=== PATIENT | male | born 1980 | race Caucasian/White ===

== ENCOUNTER 2016-06-08 12:30 | Emergency (ER) | payer OTHER ==
--- NOTE | 2016-06-08 12:42 | EDPHY ---
H & P Stated Complaint: "Pressure in esophagus" x 16 hrs;thinks he has something stuck in throat Time Seen by Provider: 06/08/16 12:42 - Personal History Current Tetanus Diphtheria and Acellular Pertussis (TDAP): Yes Tetanus Vaccine Date: 2015 - Medical/Surgical History Other PMH: family hx achalsia - Social History Smoking Status: Never smoked Constitutional: Initial Vital Signs Temperature (C) 36.8 C 06/08/16 12:35 Heart Rate 78 06/08/16 12:35 Respiratory Rate 18 06/08/16 12:35 Blood Pressure 147/102 H 06/08/16 12:35 O2 Sat (%) 96 06/08/16 12:35 O2 Delivery Mode Room Air Allergies/Adverse Reactions: No Known Allergies Allergy (Unverified 06/08/16 12:41) Home Medications: Medication Instructions Recorded NK [No Known Home Meds] 06/08/16 Medical Decision Making ED Course/Re-evaluation: CHIEF COMPLAINT: "food is getting stuck in my chest" HISTORY OF PRESENT ILLNESS: The patient is a 35 y/o male arriving with his complaining of the sensation of food stuck in his chest for the last 16 hours since eating dinner last night. He continues to have the sensation of food stuck low in his esophagus. He has been vomiting since symptom onset and has difficulty keeping saliva down. He has not been able to eat or drink today. He has had these symptoms previously, but it normally resolves after an hour. He 's experienced symptoms after consuming liquids and solids and sometimes after eating spicy foods. His mother has a history of achalasia. He is otherwise healthy. REVIEW OF SYSTEMS: A 10 point review of systems was performed and is negative with the exception of the elements mentioned in the history of present illness. PHYSICAL EXAM: HR, BP, O2 Sat, RR. Temp noted General Appearance: Alert, well hydrated, appropriate, and non-toxic appearing. Head: Atraumatic without scalp tenderness or obvious injury Eyes: Pupils equal, round, reactive to light and accommodation, EOMI, no trauma , no injection. Ears: Clear bilaterally, no perforation, normal landmarks Nose: Atraumatic, no rhinorrhea, clear. Throat: There is no erythema or exudates, no lesions, normal tonsils, mucus membranes moist. Neck: Supple, nontender, no lymphadenopathy. Respiratory: No retractions, no distress, no wheezes, and no accessory muscle use. Lungs are clear to auscultation bilaterally. Cardiovascular: Regular rate and rhythm, no murmurs, rubs, or gallops. Good capillary refill all extremities. Gastrointestinal: Abdomen is soft, nontender, non-distended, no masses, no rebound, no guarding, no peritoneal signs. Musculoskeletal: Normal active ROM of all extremities, atraumatic. Neurological: Alert, appropriate, and interactive. The patient has normal DTRs and non-focal cranial nerves, motor, sensory, and cerebellar exam. Skin: No rashes, good turgor, no nodules on palpation. Past medical history: previous difficulty getting food stuck in esophagus Past surgical history: denies Family history: Mother has achalasia. Social history: at bedside. PCP: Dr. Marx. DIFFERENTIAL DIAGNOSIS: The differential diagnosis for the patient's symptoms included but was not limited to esophageal stricture, esophageal obstruction, achalasia, Schatzki's ring, eosinophil esophagitis. MEDICAL DECISION MAKING: This is a healthy 35 y/o male presenting with a 16-hour episode of food stuck in his esophagus. He has a previous history of being unable to swallow food, but states it usually resolves after 1 hour. He has not been evaluated for this previously. He has a normal airway and his exam is unremarkable. He's in no acute distress. Although patient is a [facility] patient, he requests to see Dr. Cesar. GI has been paged for consult. 1345: Consulted with Dr. Cesar, GI. He will assess patient in the ED and plans to take him to endoscopy. - Data Points Laboratory Results: Laboratory Results 06/08/16 13:50 06/08/16 06/08/16 06/08/16 13:50 13:50 13:50 WBC 7.95 10^3/uL 10^3/uL (3.80-9.50) RBC 5.19 10^6/uL 10^6/uL (4.40-6.38) Hgb 16.5 g/dL g/dL (13.7-17.5) Hct 47.2 % % (40.0-51.0) MCV 90.9 fL fL (81.5-99.8) MCH 31.8 pg pg (27.9-34.1) MCHC 35.0 g/dL g/dL (32.4-36.7) RDW 12.3 % % (11.5-15.2) Plt Count 203 10^3/uL 10^3/uL (150-400) MPV 11.6 fL fL (8.7-11.7) Neut % (Auto) 62.0 % % (39.3-74.2) Lymph % (Auto) 28.2 % % (15.0-45.0) Ocean % (Auto) 7.4 % % (4.5-13.0) Eos % (Auto) 1.5 % % (0.6-7.6) Baso % (Auto) 0.5 % % (0.3-1.7) Nucleat RBC Rel Count 0.0 % % (0.0-0.2) Absolute Neuts (auto) 4.93 10^3/uL 10^3/uL (1.70-6.50) Absolute Lymphs (auto) 2.24 10^3/uL 10^3/uL (1.00-3.00) Absolute Monos (auto) 0.59 10^3/uL 10^3/uL (0.30-0.80) Absolute Eos (auto) 0.12 10^3/uL 10^3/uL (0.03-0.40) Absolute Basos (auto) 0.04 10^3/uL 10^3/uL (0.02-0.10) Absolute Nucleated RBC 0.00 10^3/uL 10^3/uL (0-0.01) Immature Gran % 0.4 % % (0.0-1.1) Immature Gran # 0.03 10^3/uL 10^3/uL (0.00-0.10) PT Pending INR Pending APTT Pending Sodium Pending Potassium Pending Chloride Pending Carbon Dioxide Pending Anion Gap Pending BUN Pending Creatinine Pending Estimated GFR Pending Glucose Pending Calcium Pending Medications Given: Discontinued Medications Sodium Chloride (Ns) 1,000 mls @ 0 mls/hr IV ONCE ONE PRN Reason: Wide Open Stop: 06/08/16 13:42 Last Admin: 06/08/16 13:54 Dose: 1,000 mls Departure - Departure Disposition: [facility] Inpatient Acute Clinical Impression: Esophageal obstruction Condition: Good Referrals: Liz Marx MD [Primary Care Provider] - As per Instructions Report Scribed for: Morgan Cabrera Report Scribed by: Kiah Richter Date of Report: 06/08/16 Time of Report: 13:33
[2016-06-08] MEDS ORDERED: NS 1,000 ML IV ONE (13:41)
[2016-06-08 13:56] LABS: % IMMATURE GRANULYOCYTES 0.4 % (0.0-1.1); ABSOLUTE IMMATURE GRANULOCYTES 0.03 10^3/uL (0.00-0.10); ADD DIFF? NO; ADD MORPH? NO; ADD SCAN? NO; ATYPICAL LYMPHOCYTE FLAG 0 (0-99); FRAGMENT RBC FLAG 0 (0-99); HEMATOCRIT 47.2 % (40.0-51.0); HEMOGLOBIN 16.5 g/dL (13.7-17.5); LEFT SHIFT FLG 0 (0-99); LIPEMIA HEMOLYSIS FLAG 90 (0-99); MEAN CELL HEMOGLOBIN 31.8 pg (27.9-34.1); MEAN CELL VOLUME 90.9 fL (81.5-99.8); MEAN PLATELET VOLUME 11.6 fL (8.7-11.7); PLATELET CLUMPS FLAG 0 (0-99); PLATELET COUNT 203 10^3/uL (150-400); RED BLOOD CELL COUNT 5.19 10^6/uL (4.40-6.38); RED CELL DISTRIBUTION WIDTH 12.3 % (11.5-15.2)
[2016-06-08 14:10] LABS: PROTIME(PATIENT) 13.1 SEC (12.0-15.0)
[2016-06-08 14:11] LABS: APTT 25.9 SEC (23.0-38.0)
[2016-06-08] MEDS ORDERED: fentaNYL 100 MCG/2 ML INJ ONE (14:26)
[2016-06-08] MEDS ORDERED: ROCURONIUM 50 MG/5 ML VIAL ONE (14:27)
[2016-06-08] MEDS ORDERED: MIDAZOLAM 2 MG/2 ML VIAL ONE (14:27)
[2016-06-08] MEDS ORDERED: PROPOFOL 200 MG/20 ML VIAL ONE (14:27)
[2016-06-08] MEDS ORDERED: LIDOCAINE 2% 100 MG/5 ML SYR ONE (14:27)
[2016-06-08 14:35] LABS: ANION GAP 11 mEq/L (8-16); CALCIUM 9.9 mg/dL (8.5-10.4); CARBON DIOXIDE 28 mEq/l (22-31); CHLORIDE 104 mEq/L (97-110); GLOMERULAR FILTRATION RATE > 60; GLUCOSE 88 mg/dL (70-100); POTASSIUM 4.9 mEq/L (3.5-5.2); SODIUM 143 mEq/L (134-144)
[2016-06-08 14:41] VITALS: BP 122/79; PULSE 70; RESP 14; TEMP 98.4; O2SAT 94
--- NOTE | 2016-06-08 16:29 | GCON ---
[f rep st] CONSULTATION REFERRING PHYSICIAN: Morgan Cabrera MD INDICATION FOR CONSULTATION: Foreign body, history of dysphagia. HISTORY OF PRESENT ILLNESS: The patient is a pleasant 35-year-old male with no significant past medical history who has had intermittent dysphagia for a number of years. He usually is able to have it pass by drinking some liquids and waiting. He was eating brisket last night when he had a piece of brisket stuck in his esophagus. He was not able to have it pass. He was bringing up saliva so presented to the emergency room for evaluation. He has not had anything to eat or drink since early this morning. He does have a family history of achalasia in his mother. These symptoms do not sound like achalasia to me, however. He did not complain of any significant heartburn, nausea, vomiting. No abdominal pain, diarrhea, constipation. No weight loss. Did not complain of any significant airborne or food allergies to his knowledge. He is in the emergency room with a foreign body, and I am called to help, treat, and evaluate in that regard. PAST MEDICAL/SURGICAL HISTORY: Intermittent dysphagia. No surgeries. MEDICATIONS: At home, none. ALLERGIES: No known drug allergies. SOCIAL HISTORY: He does not smoke. He drinks alcohol a few times a week socially. FAMILY HISTORY: Mother with achalasia. No family history of colon cancer, colon polyps. REVIEW OF SYSTEMS: A comprehensive review of systems performed is negative other than noted in the HPI. PHYSICAL EXAMINATION: GENERAL: Well developed, well nourished, no acute distress, sitting in his bed comfortably. VITAL SIGNS: Blood pressure is 147/ 102, pulse is 78, respirations 18, he is 36.8 on room air. EYES: Anicteric, BERNARD, EOMI. MOUTH: No lesions. Moist membranes. NECK: Supple. Full range of motion. No JVD. BACK: No spine tenderness. No CVA tenderness. LUNGS: Clear. CARDIAC: S1, S2. Regular rate and rhythm. No murmurs, rubs, gallops appreciated. ABDOMEN: Bowel sounds are normal in pitch and frequency. Abdomen is soft and nontender. No hepatosplenomegaly. EXTREMITIES: No cyanosis, clubbing, or edema. NEUROLOGIC: Cranial nerves intact. Nonfocal. SKIN: No stigmata of advanced liver disease. No rashes. LABORATORY DATA: WBC 7.95, hemoglobin 16.5, hematocrit 47.2, platelet count 203. Basic metabolic panel is pending. Pro time is 13.1, INR 1.0, PTT 25.9. All of those labs are from today. ASSESSMENT: 1. Intermittent dysphagia. 2. Likely foreign body. 3. Family history of achalasia. RECOMMENDATIONS: 1. Proceed with urgent EGD with anesthesia for evaluation of foreign body and dysphagia. 2. Pending results of EGD, we will either treat for only active issues with PPI therapy or for EOE with both PPI therapy and allergy evaluation. I will likely biopsy both the mid and distal esophagus to evaluate for eosinophilic esophagitis unless there is a clear acid reflux strictured narrowing in the distal esophagus. 3. Further recommendations to follow results of above and clinical course. I do not think this is achalasia. I think is most likely EOE or acid reflux with EOE being more likely given the patient's lack of any acid reflux symptoms. If there is evidence of achalasia, I would perform an outpatient manometry for documentation and then proceed with myotomy balloon dilation as appropriate therapy. Thank you for allowing me to participate in patient's healthcare. Do not hesitate to call me with questions. /[id number]/MODL MTDD
--- NOTE | 2016-06-08 18:34 | GPN ---
[f rep st] PROCEDURE NOTE DATE OF PROCEDURE: 06/08/2016 PROCEDURE: Esophagogastroduodenoscopy with biopsy and foreign body removal. INDICATION: Foreign body. History of intermittent dysphagia. POSTOPERATIVE DIAGNOSIS: Foreign body; rule out eosinophilic esophagitis. POSTOPERATIVE DIAGNOSES: 1. Foreign body in distal esophagus, advanced into the stomach. 2. Distal esophageal stenosis, status post dilation with scope and foreign body. 3. Changes consistent with eosinophilic esophagitis, status post biopsy of proximal and distal esop hagus. 4. Mild gastritis in the body of the stomach. 5. Mild duodenitis with duodenal erythema status post biopsy. INFORMED CONSENT: I did discuss with the patient regarding the procedure, alternatives, benefits, a nd risks, including bleeding, perforation, infection, and risk of medication. Informed consent was signed and witnessed. COMPLICATIONS: None immediate. MEDICATIONS: General anesthesia as per Dr. Elias. PROCEDURE IN DETAIL: After adequate sedation, patient was moved into the left lateral decubitus pos ition. The forward viewing upper endoscope was introduced through the oropharynx and advanced under direct visualization down the esophagus. There were changes consistent with eosinophilic esophagit is with longitudinal furrows in rings. The foreign body was noted in the distal esophagus. With ge ntle pressure, I was able to advance this into the stomach. There was a small amount of auto-dilati on from advancing the foreign body through this distal esophageal mild stenosis. The endoscope was advanced into the stomach. There are punctate erythema and erosions in the body of the stomach. I wonder if this was related to trauma from vomiting. There were no significant ulcerations or masses . Biopsies taken from the body of the stomach for histologic evaluation. The endoscope was advance d into the duodenum. The duodenal bulb and sweep had erythema. Biopsies were taken for histologic evaluation. The endoscope was withdrawn back into the stomach. Retroflex examination was performed . The food was noted in the upper portion of the body of the stomach. The endoscope was un-retrofl exed and withdrawn into the esophagus. Biopsies were taken from both the distal and proximal esopha umm in different jars. The endoscope was advanced down to the stomach, and air was withdrawn. The endoscope was then completely withdrawn, confirming the above findings. The patient tolerated the p rocedure well and was transferred to recovery room in satisfactory condition. IMPRESSION: 1. Changes consistent with eosinophilic esophagitis, status post biopsies of proximal and distal es ophagus. 2. Foreign body in distal esophagus, moved into the stomach, with some mild auto-dilation of the es ophageal stenosis. 3. Gastritis. 4. Duodenitis. RECOMMENDATIONS: 1. Follow up the biopsies of the duodenum, body of the stomach, and proximal and distal esophagus. 2. Start pantoprazole or equivalent PPI once daily half an hour before breakfast. 3. Cut food into small pieces and chew well. 4. Followup pathologies. Expect this will show eosinophilic esophagitis. If it does, refer to all ergist for evaluation. 5. Allergy avoidance. 6. If patient is unable to do allergy avoidance and has continued problems with EoE and dysphagia, then use of fluticasone "swallowed, not inhaled" to treat the eosinophilic esophagitis. 7. Further recommendations to follow results of pathology and patient's clinical course. 8. Follow up with primary care physician as scheduled. 9. Patient will need followup in GI clinic pending pathology results. Thank you for allowing me to participate in this patient's care. Do not hesitate to call me for any questions. /[id number]/MODL
== END 2016-06-08 14:00 | disposition home or self-care (01) ==
DX: T18.128A Food in esophagus causing other injury, initial encounter (principal); K22.2 Esophageal obstruction; K20.0 Eosinophilic esophagitis; K29.80 Duodenitis without bleeding
CPT/HCPCS: J2001; J2250; J2704; J3010